=== PATIENT | male | born 1990 | race American Indian/Alaskan Native ===

== ENCOUNTER 2017-02-07 20:44 | Emergency (ER) | payer MEDICAID ==
[2017-02-07 20:56] VITALS: BP 142/71
[2017-02-07] MEDS ORDERED: NACL 0.9% 500 ML IR ONE (20:57)
[2017-02-07] MEDS ORDERED: BOOSTRIX IM ONE (21:16)
[2017-02-07] MEDS ORDERED: XYLOCAINE 2%/EPI 1:100,000 INFILTRATI ONE (21:17)
[2017-02-07] MEDS ORDERED: TRIPLE ANTIBIOTIC TP ONE (21:17)
[2017-02-07] MEDS ORDERED: MOTRIN PO ONE (21:20)
--- NOTE | 2017-02-07 21:22 | Emergency Department Report ---
ED Extremity Problem HPI - General Chief complaint: Wound/Laceration Stated complaint: LACERATION TO RT ARM Time Seen by Provider: 02/07/17 21:14 Source: patient Mode of arrival: Ambulatory Limitations: No Limitations - History of Present Illness Initial comments: PT states he accidentally cut his R arm when he was at work. 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 PT was holding the plastic secure with his R hand. PT states he accidentally cut his R FA PT states he is unsure when last td vaccine was pt denies other injury -: hour(s) Location: right, upper extremity (forearm ) History of Same: No Severity scale (0 -10): 2 Quality: constant Consistency: constant Improves with: nothing Worsens with: palpation Associated Symptoms: denies other symptoms - Related Data Previous Rx's Medication Instructions Recorded Last Taken Type Ibuprofen [Motrin] 600 mg PO Q8H PRN #15 tablet 02/07/17 Unknown Rx Allergies Allergy/AdvReac Type Severity Reaction Status Date / Time shrimp Allergy Swelling Verified 02/07/17 20:51 ED Review of Systems ROS: Stated complaint: LACERATION TO RT ARM Other details as noted in HPI Comment: All other systems reviewed and negative Constitutional: denies: malaise Cardiovascular: denies: edema, syncope Musculoskeletal: as per HPI, other (full rom to R hand ). denies: back pain Skin: as per HPI Neurological: denies: numbness, paresthesias ED Past Medical Hx - Past Medical History Previous Medical History?: No - Surgical History Additional Surgical History: abdominal surgery as a baby - Social History Smoking Status: Current Some Day Smoker Substance Use Type: None - Medications Home Medications: Home Medications Medication Instructions Recorded Confirmed Last Taken Type Ibuprofen [Motrin] 600 mg PO Q8H PRN #15 tablet 02/07/17 Unknown Rx ED Physical Exam - General Limitations: No Limitations General appearance: alert, in no apparent distress - Head Head exam: Present: atraumatic, normocephalic, normal inspection - Eye Eye exam: Present: normal appearance. Absent: conjunctival injection - ENT ENT exam: Present: normal exam - Neck Neck exam: Present: normal inspection, full ROM - Respiratory Respiratory exam: Present: normal lung sounds bilaterally. Absent: respiratory distress - Cardiovascular Cardiovascular Exam: Present: regular rate, normal rhythm, normal heart sounds - Extremities Exam Extremities exam: Present: full ROM, tenderness - Expanded Upper Extremity Exam Right Upper Arm exam: Present: normal inspection, full ROM Elbow exam: Present: normal inspection, full ROM Forearm Wrist exam: Present: tenderness, laceration (4 cm laceration R ant FA, subcutaneous tissue exposed, no tendon involvement noted). Absent: swelling, ecchymosis, deformity Hand Wrist exam: Present: normal inspection, full ROM. Absent: tenderness, swelling, laceration - Back Exam Back exam: Present: normal inspection, full ROM - Neurological Exam Neurological exam: Present: alert, oriented X3 - Psychiatric Psychiatric exam: Present: normal affect, normal mood - Skin Skin exam: Present: warm, dry. Absent: intact ED Course Vital Signs 02/07/17 20:51 Temperature 98.8 F Pulse Rate 64 Blood Pressure 142/71 O2 Sat by Pulse 100 Oximetry - Reevaluation(s) Reevaluation #1: 02/07/17 22:33 PT's td vaccine has been up dated. pt tolerated sutures well. no immediate complications - Laceration /Wound Repair Right Anterior Arm Wound Location: upper extremity (R FA ) Wound Length (cm): 4 Wound's Depth, Shape: superficial Wound Explored: no foreign body removed Irrigated w/ Saline (ccs): 400 Betadine Prep?: Yes Anesthesia: Lidocaine w/ Epi Volume Anesthetic (ccs): 3 Wound Debrided: minimal Wound Repaired With: sutures Suture Size/Type: 5:0 Number of Sutures: 11 Layer Closure?: No Sterile Dressing Applied?: Yes Progress: skin cleansed with lidocaine. after pt anaesthetized with lidocaine and epi, 11 simple interrupted sutures were placed. attempted to line up edges of pt's forearm tattoo. pt tolerated the procedure well. no immediate complications - Pulse Oximetry Interpretation Digit-Finger Initial Pulse Oximetry Readin Actions Taken: none ED Medical Decision Making - Differential Diagnosis laceration, avulsion Critical Care Time: No Critical care attestation.: If time is entered above; I have spent that time in minutes in the direct care of this critically ill patient, excluding procedure time. ED Disposition Clinical Impression: Need for Tdap vaccination Forearm laceration Qualifiers: Encounter type: initial encounter Laterality: right Qualified Code(s): S51.811A - Laceration without foreign body of right forearm, initial encounter Disposition: TO HOME OR SELFCARE Is pt being admited?: No Does the pt Need Aspirin: No Condition: Stable Instructions: Suture Care (ED), Laceration (ED) Additional Instructions: Return in 10- 14 days for suture removal Return sooner if you develop fevers, chills, redness or drainage from your wound Recheck your bp at follow up Prescriptions: Ibuprofen [Motrin] 600 mg PO Q8H PRN #15 tablet PRN Reason: Pain Referrals: PRIMARY CAREMD [Primary Care Provider] - 3-5 Days ELVA PHILLIPS MD [Staff Physician] - 3-5 Days Forms: Work/School Release Form(ED) Time of Disposition: 22:37
[2017-02-08] MEDS ORDERED: NACL 0.9% IR ONE (05:18)
== END 2017-02-07 22:53 | disposition home or self-care (01) ==
LOC: ED 20:44
DX: S51.811A Laceration without foreign body of right forearm, initial encounter (principal); Z23 Encounter for immunization; Z72.0 Tobacco use; Z91.013 Allergy to seafood; W26.9XXA Contact with unspecified sharp object(s), initial encounter; Y93.89 Activity, other specified; Y99.9 Unspecified external cause status; Y92.89 Other specified places as the place of occurrence of the external cause
CPT/HCPCS: 90471; 90715; A6250

== ENCOUNTER 2017-03-05 22:39 | Emergency (ER) | payer MEDICAID ==
[2017-03-06 00:03] VITALS: BP 126/67
== END 2017-03-06 00:30 | disposition left against medical advice (07) ==
LOC: ED 22:39
DX: S51.811D Laceration without foreign body of right forearm, subsequent encounter (principal); Z53.21 Procedure and treatment not carried out due to patient leaving prior to being seen by health care provider